=== PATIENT | male | born 1940 | race Caucasian/White ===

== ENCOUNTER 2021-07-26 07:14 | Day surgery (SDC) | payer OTHER, SELFPAY ==
[2021-07-26] VITALS (15 sets, daily range): BP systolic 102–162; BP diastolic 52–88; PULSE 84–113; RESP 10–17; TEMP 36.4–37.1; O2SAT 94–99; BMI 18.7
--- NOTE | 2021-07-26 | DI.RAD.S_ITS ---
PROCEDURE: XR CERVICAL SPINE 2V OR 3V INDICATIONS: ACDF C4-C7 TECHNIQUE: 2 view(s) of the cervical spine were acquired. COMPARISON: None. FINDINGS: Spot fluoroscopic intraoperative images demonstrating C4-C7 ACDF with interbody cage grafts. Expected intraoperative alignment. Hardware appears intact. Dictated by: Kelechi Swanson M.D. on 07/26/2021 at 12:57 Approved by: Kelechi Swanson M.D. on 07/26/2021 at 12:58
[2021-07-26 08:02] LABS: COVID19 -Nasal RAPID Negative (Negative)
[2021-07-26] MEDS: ACETAMINOPHEN 325 MG TABLET 975 MG PO (08:29)
--- NOTE | 2021-07-26 08:29 | PM.PREOP ---
Pre-operative Note COVID-19 COVID-19 status: Negative Result date/Date tested (Pos, Neg/Pending): 07/26/21 Interval Note History & Physical reviewed/Exam performed by Physician: Yes Changes to H&P: No
[2021-07-26] MEDS: LACTATED RINGERS 1,000 ML 42 ML IV ×2 (08:31→10:14)
[2021-07-26] MEDS: CEFAZOLIN 1 GM VIAL 2 GM IV (09:11)
--- NOTE | 2021-07-26 09:49 | SUR.OPER ---
Prone on spine table, head in foam head support, padded chest and pelvic supports, gel pad at knees, lower legs supported by pillows; nipples, genitalia and toes free of pressure, arms secured on foam padded arm boards at <90 degrees abduction. Tape over blanket at thigh secured to table.
[2021-07-26] MEDS: BUPIVACAINE 0.25% (PF) VIAL 30 ML INJ (09:57)
[2021-07-26] MEDS: EPINEPHrine 1 MG/ML 0.15 MG INJ (09:58)
--- NOTE | 2021-07-26 12:00 | PM.OP.1 ---
Operative Date/Time/Diagnoses Date of procedure: 07/26/21 Time of procedure: 08:45 Pre-op diagnosis: 1. C4-5, C5-6, C6-7 spondylosis with radiculopathy 2. 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 C4-5 C5-6 C6-7 anterior cervical diskectomy and fusion 2. C4-5 C5-6 C6-7 anterior interbody cage placement 3. C4-5 C5-6 C6-7 anterior instrumentation with plate and screw placement in C4-C5-C6 and C7 vertebrae 4. Utilization of microsurgical technique and operating loupes Same procedure as scheduled: Yes Indications: Patient has been having chronic neck pain and worsening cervical radiculopathy. Patient failed multiple conservative management with worsening pain weakness and numbness in her upper extremity. Patient has been having difficulty performing activity of daily living. After discussing risks benefits of treatment options, patient elected proceed with surgery. Surgeon: Grant Aguilar Autom[employer] Refinisher: Lala Rich Click Yes if Unassisted: No Anesthesia Type: General Operative Notes Closure Type: primary Specimen(s): none sent Prosthetic devices, grafts, tissues, transplants, or devices: Globus extend plate, PEEK cage Estimated Blood Loss (mL): 50 Procedure in detail: Patient was seen in the preoperative area. Risks and benefits of the surgery was discussed with the patient. Operative consent was obtained and placed in the chart. Patient was then taken to the operative room. Prophylactic antibiotic was given less than 0.5 hr prior to skin incision. General anesthesia was administered. Patient was placed into a supine position on her radiolucent table. Bilateral shoulders were taped down to allow proper C-arm imaging. Anterior cervical area was prepped and draped in a sterile fashion. Time-out was performed at this time. Using lateral C-arm imaging, the level between C4 and C7 was identified and marked on patient's neck. A oblique incision from midline towards medial border of sternocleidomastoid muscle was made. The platysma muscle was incised in line with skin incision. Metzenbaum scissor was used to develop the plane between the medial border of sternocleidomastoid d and the strap muscles medially. The carotid sheath and its contents were identified and protected behind the hand-held retractor during the entire case. The plane between the carotid sheath and strap muscles was developed with Metzenbaum scissors. Dissection was made down to the level of the anterior cervical fascia. Longus colli muscle was incised on the anterior aspect of vertebral bodies bilaterally from C4-C7. Spinal needle was placed into the C4-5 disc space and confirmed with lateral C-arm imaging. Using microsurgical technique and operative microscope, anterior cervical diskectomy was performed at C4-5 C5-6 and C6-7 level. This was done by removing the disc material, removing the anterior and posterior osteophytes posterior longitudinal ligaments along with performing bilateral foraminotomies at all 3 levels. Patient was found to have severe central and foraminal stenosis at all 3 levels. Patient's stenosis was fully decompressed after decompression was completed. Patient was found to have large anterior and posterior osteophytes at all 3 levels which was fully decompressed and removed during the process of the diskectomy and decompression. After the diskectomy was completed, 3 anterior interbody cages were obtained. The cages were packed with DBM bone grafting material. One cage each along with the bone grafting material was then packed into the interbody spaces from C4-C7 with one cage into each interbody level. After the cages were placed, the anterior cervical plate was stabilized to the C4-C7 vertebrae using 2 screws at each each level. Total 8 screws were placed. After confirming placement of the hardware with AP and lateral C-arm imaging, the screws were locked into the plate using the locking mechanism and torque limiting screwdriver. After the hardware was placed and confirmed with AP and lateral C-arm imaging, the wound was irrigated with sterile normal saline. The platysma muscle and the subcutaneous tissue was closed with 2-0 Vicryl. The skin was closed with 4-0 Monocryl and Steri-Strips. Patient tolerated the procedure well. Patient was transferred recovery room in stable condition. There were no complications. Complications: none Post-operative Condition: stable Disposition: PACU Plan for aftercare: Admit to inpatient hospital
[2021-07-26] MEDS: fentaNYL 100 MCG/2 ML INJ IV (12:35)
[2021-07-26] MEDS: hydrOXYzine pamoate 25 MG CAPSULE PO ×2 (12:50→22:05)
[2021-07-26] MEDS: OXYCODONE IR 5 MG TABLET PO ×3 (12:50→22:05)
[2021-07-26] MEDS: BENZOCAINE/MENTHOL 1 LOZ PKT 1 EACH PO (12:50)
[2021-07-26] MEDS: LACTATED RINGERS 1,000 ML 120 ML IV (12:51)
--- NOTE | 2021-07-26 13:18 | SUR.PHASEI ---
transferred to room 224 by LUIS Ricks and LUIS Reese. Belongings bag with pt.
[2021-07-26] MEDS: SODIUM CHLORIDE 0.9% 1,000 ML 100 ML IV (13:40)
--- NOTE | 2021-07-26 14:03 | SUR.OPER ---
Supine on padded OR bed, head on pillow, arms padded and tucked at sides, legs uncrossed, safety belt at thigh, tape over blanket over lower legs .
[2021-07-26] MEDS: HYDROMORPHONE 0.5 MG INJ IV (14:24)
--- NOTE | 2021-07-26 15:00 | PT.IIE ---
Current Diagnoses Other spondylosis with radiculopathy, cervical region (07/26/21) Spinal stenosis, cervical region (07/26/21) Surgery Performed Operation Date: 07/26/21 08:45 Actual Procedures p C4-5, C5-6, C6-7 ACDF w/anterior instrumentation(Not Applicable) - Grant Aguilar MD Medical History (Last Updated 03/09/21 @ 09:18 by Halley Figueroa RN) Ankle fracture, right (1982) Anxiety about health Arthritis Diabetes (~2003) Enlarged prostate Hearing impaired History of tremor Insomnia Meningitis Palpitations Panic attacks Skin irritation SOB (shortness of breath) Physical Therapy Inpatient Evaluation/Re-Eval M1 PT/OT-IP Prior Functional Status Start: 07/26/21 15:50 Freq: NEEDED Status: Active Protocol: Document 07/26/21 15:00 AB (Rec: 07/26/21 16:04 AB [id number]) Medical Review Prior Functional Status Medical History Reviewed Yes Communication able to answer questions but needs increase time to respond ; pt stated that he feels groggy Mobility and Gait stated that he is independent with all mobilities and ambulation without AD Social History Household Members spouse Living Arrangements House Number of Floors (Floors) Two Floors Number of Stairs To Enter/Railing? pt stays on main level of the house 3 steps B rails to enter from the side door 2 steps without rail from the front Home Environment Standard Height Toilet,Tub/ Shower Home Equipment Hand Held Shower Employment Status Retired Additional Social History Comment spouse stated that she can take pt to their shop's shower room which is a walk in shower with built in seat, no grab bars , with [facility] pt has an adjustable bed spouse works as a SW but will be working from home to assist pt M2 PT-IP Current Condition Start: 07/26/21 15:50 Freq: NEEDED Status: Active Protocol: Document 07/26/21 15:00 AB (Rec: 07/26/21 16:04 AB [id number]) Physical Therapy Current Condition Current Condition Evaluation Date 07/26/21 Treatment Diagnosis s/p C4-5, C5-6, C6-7 ACDF; difficulty in walking Onset Date 07/26/21 Precautions Cervical Spine Precautions Soft Collar for Comfort,No Heavy Lifting,Log Roll M3 PT-IP Subjective Start: 07/26/21 15:50 Freq: NEEDED Status: Active Protocol: Document 07/26/21 15:00 AB (Rec: 07/26/21 16:04 AB [id number]) Subjective Physical Therapy Visit Type Type Initial Evaluation Visit Start Time 15:00 Visit Stop Time 15:40 Total Visit Minutes 40 Number of STORAGE MANAGEMENT CONSULTANT Visits 0 Physical Therapy Visit Comments Patient Comments agreeable to do PT Therapy Pain Assessment Pain When Pain Assessed At Rest Pain Present Pain Present Pain Reported Location neck Intensity 5 Scale Used Numeric (0 - 10) Pain Management Techniques Apply Cold,Distraction, Modification of Treatment,Re- positioning,Timing of Activity with Medications M4 PT-IP Mobility and Gait Start: 07/26/21 15:50 Freq: NEEDED Status: Active Protocol: Document 07/26/21 15:00 AB (Rec: 07/26/21 16:04 [id number]) PT-Bed Mobility Assessment Rolling Type of Rolling Log Rolling Level of Assist Moderate Assistance Supine to Sit Supine to Sit Minimal Assistance Sit to Supine Sit to Supine Minimal Assistance PT-Transfer Assessment Sit to and From Stand Sit to and from Stand Minimal Assistance,1 Person Assistance,Use of Upper Extremities Equipment Transfer Assistive Device None,Bed Rail,Front Wheeled Walker Orthotic/Prosthetic Devices or Brace: No Comments Mobility Comments spouse in room. educated pt and spouse regarding cervical precautions and log roll bed mobility. pt stated that he feels groggy. pt completed log roll bed mobility min to mod A and max cues. able to sit on EOB SBA. no c/o dizziness/ lightheadedness but continues to c/o grogginess. educated spouse on soft collar management and was able to assist pt with donning/doffing of collar. BP sittin/ 87. pt completed sit to stand min A and ambulated in room without AD min to mod A ~ 15 ft. presents with shuffling gait, increase trunk flexion and decrease BLE elevation. pt agreed to use FWW. completed ambulation using FWW ~ 25 ft min A and cues. pt requested to go back to bed. completed sit to supine min A and cues. positioned pt in bed. call light and table placed within reach. Gait Assessment Gait Gait Assistance Required: Minimum Assistance,Moderate Assistance,1 Person Assist Distance (Feet) 25 Able to Maintain Weight Bearing Status Yes During Gait Assistive Devices Assistive Device None,Gait Belt,Front Wheeled Walker Orthotic/Prosthetic Devices or Brace: Yes Gait Deviations General Gait Pattern Decreased Stride Length, Decreased Feet Clearance, Flexed Trunk,Step-to Gait Factors Limiting Gait Function Factors Limiting Gait Function Decreased Activity Tolerance, Decreased Strength,Difficulty Following Directions,Limited Range of Motion,Pain,Poor Balance,Poor Safety Awareness PT-Balance Assessment Sitting Balance and Reactions Static Sitting Balance Ability Good Dynamic Sitting Balance Ability Good Standing Balance and Reactions Static Standing Balance Ability Fair Dynamic Standing Balance Ability Poor Device Used without AD M5 PT-IP Objective Assessments Start: 07/26/21 15:50 Freq: NEEDED Status: Active Protocol: Document 07/26/21 15:00 AB (Rec: 07/26/21 16:04 AB [id number]) Orientation Orientation/Cognition Level of Alertness Alert Orientation Name Language Function Ability Hard of Hearing Safety Awareness Decreased Safety Awareness Memory Description Short Term Impaired Gross Range of Motion Lower Extremity ROM Assessment Within Functional Limits Strength Lower Extremity Strength Assessment Within Functional Limits Sensation Assessment Sensation Gross Sensation WNL Muscle Tone Muscle Tone WNL Yes M6 PT-IP Treatment Start: 07/26/21 15:50 Freq: NEEDED Status: Active Protocol: Document 07/26/21 15:00 AB (Rec: 07/26/21 16:04 AB [id number]) Physical Therapy Treatment Education Education Provided Precautions,Weight Bearing Status,Post-Op Packet,Safety M7 PT-IP Assessment and Plan Start: 07/26/21 15:50 Freq: NEEDED Status: Active Protocol: Document 07/26/21 15:00 AB (Rec: 07/26/21 16:04 [id number]) PT Summary Assessment and Plan Potential Rehabilitation Potential Good Status of Condition at Evaluation Evolving Summary Impairments Pain,ROM,Strength,Balance, Coordination,Cognition,Bed Mobility,Transfers,Gait, Activity Tolerance Assessment Summary Pt s/p ACDF POD 0. still c/o feeling groggy but willing to do PT. spouse in room during PT session. pt requiring min A to mod A with ambulation without AD. recommending use of FWW at this time for safety but will re-assess tomorrow. pt's spouse will assist pt at home and caregiver training will be conducted when appropriate as well as stair climbing training. spouse stated that she get get a FWW for pt to use if needed. will continue to assess progress. Goals Bed Mobility Goal Independent Transfer Goal Independent,Front Wheeled Walker Gait Goal Independent,Front Wheel Walker Gait Distance 200 Other Goals ambulation without AD 200 ft SBA up/down 3 steps B rails SBA Days to Meet Goals 3 Frequency of Treatment Frequency Of Treatment Twice a Day Treatment Plan Physical Therapy Treatment Plan Bed Mobility Training,Transfer Training,Gait Training, Therapeutic Exercise,Balance Retraining,Post Op Education, Discharge Planning,Hot or Cold Pack,Neuromuscular Re-ed, Coordination Retraining,Manual Therapy Precautions Cervical Spine Precautions Soft Collar for Comfort,No Heavy Lifting,Log Roll Recommendations To Nursing Amount of Assist Needed 1 Person Assist Discharge Recommendations PT Discharge Recommendations Home with Assistance Equipment Needed for Home Before FWW Discharge Transportation Needs at Discharge Private Vehicle
[2021-07-26] MEDS: ACETAMINOPHEN 325 MG TABLET 650 MG PO (15:07)
--- NOTE | 2021-07-26 15:31 | PC.NURSE ---
Pt arrived from PACU at approximately 1320 A &O x3, pleasant. Pain reported 5/10 to neck medicated with PRN pain medications. IVF NS @ 100 ml /hr. Lara in place draining copious Light yellow clear urine output. Pt denies n/v, denies appetite, VSS, afebrile on RA, able to participate with PT this afternoon. Soft collar in place with dressing C/D/I/.
[2021-07-26] MEDS: CEFAZOLIN 1 GM VIAL IV (17:18)
[2021-07-26] MEDS: ATORVASTATIN 20 MG TABLET PO (17:18)
[2021-07-26] MEDS: SENNOSIDES 8.6 MG TABLET 17.2 MG PO (20:15)
[2021-07-26] MEDS: METFORMIN HCL 500 MG TABLET 1000 MG PO (20:15)
[2021-07-26] MEDS: SERTRALINE 50 MG TABLET 25 MG PO (20:15)
[2021-07-26] MEDS: DOCUSATE 100 MG CAPSULE PO (20:15)
[2021-07-27] MEDS: SODIUM CHLORIDE 0.9% 1,000 ML 100 ML IV (00:56)
[2021-07-27 01:00] VITALS: BP 127/68; PULSE 86; RESP 16; TEMP 36.3; O2SAT 97
[2021-07-27] MEDS: CEFAZOLIN 1 GM VIAL IV (01:52)
[2021-07-27] MEDS: OXYCODONE IR 5 MG TABLET PO ×3 (02:06→11:39)
[2021-07-27 04:09] VITALS: BP 121/63; PULSE 87; RESP 16; TEMP 36.6; O2SAT 95
[2021-07-27 08:00] VITALS: BP 132/68; PULSE 88; RESP 17; TEMP 37.4; O2SAT 95
--- NOTE | 2021-07-27 09:12 | P.DS_ITS ---
History of Present Illness History of Present Illness Date Patient Seen: 07/27/21 Time Patient Seen: 09:12 Chief complaint: OPB Narrative: Refer to previous HPI. 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 C4-5 C5-6 C6-7 anterior interbody cage placement 3.? C4-5 C5-6 C6-7 anterior instrumentation with plate and screw placement in C4-C5-C6 and C7 vertebrae 4.? Utilization of microsurgical technique and operating loupes Hospital Course: Patient was admitted to the hospital following the above-listed procedure for the above-listed diagnosis. Following the procedure the patient has been convalescing appropriately in his pain has been managed with his current pain management regimen. Throughout his time in the hospital the patient has denied fever, chills, nausea, chest pain, shortness of breath, or urinary retention. Dressing over the incision site has remained clean, dry, and intact following surgery. Patient has successfully worked with physical therapy prior to discharge. Status at Discharge Cognitive/behavioral status at discharge: oriented Functional status at discharge: independent ambulation Overall status at discharge: patient is progressing back to baseline Exam Vital Signs (past 8 hours): - 07/27/21 04:09 07/27/21 08:00 Temperature 97.9 F 99.4 F Pulse Rate 87 88 Respiratory Rate 16 17 Blood Pressure 121/63 132/68 Pulse Oximetry 95 95 Oxygen Delivery Method Room Air Oxygen Flow Rate 0 Narrative Exam Narrative: Pleasant 80-year-old male postop day 1 status post C4-5, C5-6, C6-7 ACDF. Patient is resting comfortably in bed, is in no acute distress, and is alert and oriented x3. Skin is warm and dry, and the skin surrounding the incision site is free of erythema, warmth, induration, or discharge. Good sensation appreciated throughout the bilateral upper extremities to light touch. Gross motor function intact throughout the bilateral upper extremities. Radial pulses palpated bilaterally are even. Calves are soft and nontender, negative Homans sign. No other signs of DVT appreciated. Const General: cooperative, healthy appearing and comfortable Resp Effort & Inspection: normal respiratory effort and able to speak in complete sentences Skin General: no rashes or lesions noted [facility] Medical History Ankle fracture, right (1982) Anxiety about health Arthritis Diabetes (~2003) Enlarged prostate Hearing impaired History of tremor Insomnia Meningitis Palpitations Panic attacks Skin irritation SOB (shortness of breath) Surgical History History of vasectomy Hx of abdominal surgery (06/2016) Social History household members: spouse Smoking Status: Former smoker alcohol intake: current Discharge Assessment & Plan Assessment and Plan Assessment: Patient is doing well and is stable. Plan of Treatment: Current pain management regimen is to be continued as it is adequately controlled the patient's pain level. First postoperative visit in clinic is scheduled for 2 weeks following discharge. Patient is able to shower with the dressing over the incision site covered. Dressing can be changed as needed if it becomes damaged or soiled. Avoid bending, twisting, lifting. Patient is to contact clinic with any concerns or questions. Any signs of increased redness, swelling, warmth, pain, or discharge from around the incision site should be reported to the clinic. Discharge Plan Discharge Plan Patient Disposition: Home Provider Discharge Comment: Patient is cleared for discharge pending PT clearance and once he is able to void following the removal of his catheter. Discharge orders & Medications Discharge Orders: Discharge (Order); Ordered 07/27/21 Ordered By: Jaya Beck Prescriptions: New acetaminophen 325 mg Tablet 650 mg PO Q6HR PRN (Reason: Pain, Mild (1-3)) Qty: 90 RF: 0 oxycodone 5 mg Tablet 5 mg PO Q3HR PRN (Reason: Pain, Moderate (4-6)) Qty: 60 RF: 0 hydroxyzine pamoate 25 mg Capsule 25 mg PO Q4HR PRN (Reason: Nausea And Vomiting) Qty: 40 RF: 0 Continued aspirin 81 mg Capsule,Delayed Release(Dr/Ec) 81 mg PO DAILY RF: 0 hydroxyzine HCl 10 mg Tablet 10 mg PO BID RF: 0 metformin 1,000 mg Tablet 1,000 mg PO BID RF: 0 glipizide 5 mg PO DAILY RF: 0 sertraline 25 mg PO BID RF: 0 atorvastatin 20 mg Tablet 20 mg PO QPM RF: 0 Diet/Activity/Treatments Diet: Diet as Tolerated and Regular Activity: Avoid bending, twisting, lifting. Skin/Wound/Dressing Care Report to your healthcare provider any signs of infection, such as:: chills, fever, night sweats, unusual drainage and unusual redness Dressing: Dressing over the incision site can be changed as needed if it becomes damaged or soiled. Other wound treatment: Avoid placing topical ointments over the incision site for soaking the incision site. Visit Report/Discharge Packet Instructions: DI for Anterior Cervical Discectomy and Fusion Stand Alone Forms: Surgery Discharge Discharge Data Attending Provider: Grant Aguilar Home Medications and Allergies Home Medications Medication Instructions Recorded Confirmed Type aspirin 81 mg capsule,delayed 81 mg PO DAILY 03/09/21 07/26/21 History release hydroxyzine HCl 10 mg tablet 10 mg PO BID 03/09/21 07/26/21 History atorvastatin 20 mg tablet 20 mg PO QPM 07/26/21 07/26/21 History glipizide 5 mg PO DAILY 07/26/21 07/26/21 History metformin 1,000 mg tablet 1,000 mg PO BID 07/26/21 07/26/21 History sertraline 25 mg PO BID 07/26/21 07/26/21 History acetaminophen 325 mg tablet 650 mg PO Q6HR PRN #90 tab 07/27/21 Rx hydroxyzine pamoate 25 mg capsule 25 mg PO Q4HR PRN #40 cap 07/27/21 Rx oxycodone 5 mg tablet 5 mg PO Q3HR PRN #60 tab 07/27/21 Rx Allergies Allergy/AdvReac Type Severity Reaction Status Date / Time No Known Drug Allergies Allergy Verified 07/26/21 08:05
[2021-07-27] MEDS: ACETAMINOPHEN 325 MG TABLET 650 MG PO (09:18)
[2021-07-27] MEDS: DOCUSATE 100 MG CAPSULE PO (09:19)
[2021-07-27] MEDS: SERTRALINE 50 MG TABLET 25 MG PO (09:20)
[2021-07-27] MEDS: METFORMIN HCL 500 MG TABLET 1000 MG PO (09:20)
[2021-07-27] MEDS: glipiZIDE 5 MG TABLET PO (09:20)
[2021-07-27] MEDS: hydrOXYzine pamoate 25 MG CAPSULE PO (09:21)
--- NOTE | 2021-07-27 10:16 | PT.IPTN ---
Current Diagnoses Other spondylosis with radiculopathy, cervical region (07/26/21) Spinal stenosis, cervical region (07/26/21) Surgery Performed Operation Date: 07/26/21 08:45 Actual Procedures p C4-5, C5-6, C6-7 ACDF w/anterior instrumentation(Not Applicable) - Grant Aguilar MD Physical Therapy Treatment Note M2 PT-IP Current Condition Start: 07/26/21 15:50 Freq: NEEDED Status: Active Protocol: Document 07/26/21 15:00 AB (Rec: 07/26/21 16:04 AB [id number]) Physical Therapy Current Condition Current Condition Evaluation Date 07/26/21 Treatment Diagnosis s/p C4-5, C5-6, C6-7 ACDF; difficulty in walking Onset Date 07/26/21 Precautions Cervical Spine Precautions Soft Collar for Comfort,No Heavy Lifting,Log Roll M3 PT-IP Subjective Start: 07/26/21 15:50 Freq: NEEDED Status: Active Protocol: Document 07/27/21 09:45 SP (Rec: 07/27/21 11:26 SP [id number]) Subjective Physical Therapy Visit Type Type Treatment Note Visit Start Time 09:45 Visit Stop Time 10:16 Total Visit Minutes 31 Notes in room, completed caregiver training including donning gait belt for safety during mobility and physical assist required throughout tx. Vital taken during tx: elevated supine: BP 141/70 HR 98 SaO2 95% on RA. seated at EOB: BP 149/74 HR 105 standing: forgot to write down , no significant change from seated. Post mobility: BP 123/56 HR 108 Number of GLOVE BRUSHER Visits 1 Physical Therapy Visit Comments Patient Comments Pt agreeable to working with therapy. Patient Goals return home with to assist him Therapy Pain Assessment Pain When Pain Assessed During Mobility Pain Present Pain Present Pain Reported Location neck Intensity 4 Scale Used Numeric (0 - 10) Description With Movement Pain Behaviors Facial Grimacing Pain Management Techniques Distraction,Re-positioning, Timing of Activity with Medications M4 PT-IP Mobility and Gait Start: 07/26/21 15:50 Freq: NEEDED Status: Active Protocol: Document 07/27/21 09:45 SP (Rec: 07/27/21 11:26 SP [id number]) PT-Bed Mobility Assessment Rolling Type of Rolling Log Rolling Level of Assist Contact Guard Assistance Supine to Sit Supine to Sit Contact Guard Assistance,Head of Bed Elevated Scooting Scooting to Edge of Bed Standby Assistance PT-Transfer Assessment Sit to and From Stand Sit to and from Stand Contact Guard Assistance, Minimal Assistance,1 Person Assistance,Use of Upper Extremities Equipment Transfer Assistive Device None,Gait Belt,Front Wheeled Walker Orthotic/Prosthetic Devices or Brace: Yes Transfers Transfer Destination Chair Transfer Technique pt ambulated using CGA- Gerson no AD, SBA FWW Transfer Ability Level of Assist Contact Guard Assistance, Minimal Assistance,1 Person Assistance,Use of Upper Extremities Comments Mobility Comments Pt reported little light headed upon position changes and walking around improved but didn't go away completely. Elevated supine 5 deg LR L with cuing for maintain spinal alignment, noted pt uses UEs to maintain head forward, L sidyling >sit CGA using BUE WB on bed to right trunk, sBA scoot to EOB. GLOVE BRUSHER educated at pt on safety use of donned gait belt in sitting pre mobility, completed. Sit> Stand CGA- Min A, stationary standing sway of trunk noted but self recovery, cues for to maintain contact safety balance no AD to assess vitals pre gait, no significant change in BP from sup and seated. Pt agreeable to progress gait around room, CGA> Min A without AD, cued upright posture, slower pacing and increase stride and foot clearance for safety, improved stability with Min cuing. Progressed gait into hallway with cues for to provide full grasp on gait belt and give pt reminders for posture, slower pacing and longer stride. GLOVE BRUSHER followed with FWW and w/c for need as arrises. GLOVE BRUSHER provided FWW CGA> SBA given by and GLOVE BRUSHER, improved stability, foot clearance. GLOVE BRUSHER suggested use at home and / pt stated can acquire one from friend or family and in agreement use at this time. Pt walked down to stairs, completed 3 stairs using BHR CGA by , stable step over step patterning. Pt walked back to room, upon closer to room, GLOVE BRUSHER provided SPC for assessment LRAD in RUE , max cues for sequencing 2pt gait with LLE, difficulty maintaining proper use and pt stated felt more safe using FWW and will get one for home. Pt returned to chair when arrived in room, good backing up fully using fWW and reach slow descent into chair SBA provided by . Pt had call light and all needs in reach before left. Pt is ok to return home with to assist him when medically cleared. Gait Assessment Gait Gait Assistance Required: Standby Assistance,Contact Guard Assist,Minimum Assistance,1 Person Assist Distance (Feet) 500 Able to Maintain Weight Bearing Status Yes During Gait Assistive Devices Assistive Device None,Gait Belt,Front Wheeled Walker Orthotic/Prosthetic Devices or Brace: Yes Gait Deviations General Gait Pattern Antalgic,Decreased Stride Length,Decreased Feet Clearance,Flexed Trunk,Narrow Based Gait Factors Limiting Gait Function Factors Limiting Gait Function Decreased Activity Tolerance, Decreased Strength,Limited Range of Motion,Pain,Poor Balance,Poor Safety Awareness Comments Gait Comments See mobility comments for details Stair Climbing Assessment Evaluation Level of Assist On Stairs Contact Guard Assistance Devices Stair Climbing Assistive Devices Left Railing,Right Railing Technique/Endurance Stair Climbing Direction Ascend and Descend Stair Climbing Technique Step Over Step Number of Steps Climbed 3 Stair Climbing Set # Repetitions (reps) 1 Comments Stair Climbing Comments see mobility comments for details PT-Balance Assessment Sitting Balance and Reactions Static Sitting Balance Ability Normal Dynamic Sitting Balance Ability Good Standing Balance and Reactions Static Standing Balance Ability Fair Dynamic Standing Balance Ability Poor Device Used without AD, good with FWW M5 PT-IP Objective Assessments Start: 07/26/21 15:50 Freq: NEEDED Status: Active Protocol: Document 07/26/21 15:00 AB (Rec: 07/26/21 16:04 AB [id number]) Orientation Orientation/Cognition Level of Alertness Alert Orientation Name Language Function Ability Hard of Hearing Safety Awareness Decreased Safety Awareness Memory Description Short Term Impaired Gross Range of Motion Lower Extremity ROM Assessment Within Functional Limits Strength Lower Extremity Strength Assessment Within Functional Limits Sensation Assessment Sensation Gross Sensation WNL Muscle Tone Muscle Tone WNL Yes M6 PT-IP Treatment Start: 07/26/21 15:50 Freq: NEEDED Status: Active Protocol: Document 07/27/21 09:45 SP (Rec: 07/27/21 11:26 SP [id number]) Physical Therapy Treatment Education Education Provided Precautions,Weight Bearing Status,Post-Op Packet,Safety M7 PT-IP Assessment and Plan Start: 07/26/21 15:50 Freq: NEEDED Status: Active Protocol: Document 07/27/21 09:45 SP (Rec: 07/27/21 11:26 SP [id number]) PT Summary Assessment and Plan Potential Rehabilitation Potential Good Status of Condition at Evaluation Evolving Summary Impairments Pain,ROM,Strength,Balance, Coordination,Cognition,Bed Mobility,Transfers,Gait, Activity Tolerance Progress Towards Goals Progressing Toward Goals,Slow Progress due to Activity Tolerance Assessment Summary Pt progressed in mobility CGA bed mobility, CGA- Min A sit> stand, cGA standing without AD . CG- min A during gait without AD unsteady requiring increased assist with balance, SBA using FWW. GLOVE BRUSHER recommended use of FWW at this time for safety with balance during mobility with pt and verbalized in agreement and can acquire one from familiy or friend. Completed gait further distance 500ft total, complete stair mgt CGA B HR. Pt is ok to return home with assist when medically stable. Pt was welcoming to GLOVE BRUSHER's recommendation of HHPT for improvement in balance, functional strength during mobility with LRAD. Goals Bed Mobility Goal Independent Transfer Goal Independent,Front Wheeled Walker Gait Goal Independent,Front Wheel Walker Gait Distance 200 Other Goals ambulation without AD 200 ft SBA up/down 3 steps B rails SBA Days to Meet Goals 3 Frequency of Treatment Frequency Of Treatment Twice a Day Treatment Plan Physical Therapy Treatment Plan Bed Mobility Training,Transfer Training,Gait Training, Therapeutic Exercise,Balance Retraining,Post Op Education, Discharge Planning,Hot or Cold Pack,Neuromuscular Re-ed, Coordination Retraining,Manual Therapy Other Recommendations and Next Treatment gait LRAD, balance activities Focus Precautions Cervical Spine Precautions Soft Collar for Comfort,No Heavy Lifting,Log Roll Recommendations To Nursing Amount of Assist Needed Standby Assistance,1 Person Assist Discharge Recommendations PT Discharge Recommendations Home with Assistance,Home Health Equipment Needed for Home Before FWW- will borrow from family/ Discharge friend Transportation Needs at Discharge Private Vehicle
--- NOTE | 2021-07-27 11:16 | OT.IP.EVAL ---
Current Diagnoses Other spondylosis with radiculopathy, cervical region (07/26/21) Spinal stenosis, cervical region (07/26/21) Surgery Performed Operation Date: 07/26/21 08:45 Actual Procedures p C4-5, C5-6, C6-7 ACDF w/anterior instrumentation(Not Applicable) - Grant Aguilar MD Past Medical History (Last Reviewed 07/27/21 @ 09:17 by Jaya Beck PA-C) Ankle fracture, right (1982) Anxiety about health Arthritis Diabetes (~2003) Enlarged prostate Hearing impaired History of tremor History of vasectomy Hx of abdominal surgery (06/2016) Insomnia Meningitis Palpitations Panic attacks Skin irritation SOB (shortness of breath) Surgical History (Last Reviewed 07/27/21 @ 09:17 by Jaya Beck PA-C) History of vasectomy Hx of abdominal surgery (06/2016) Occupational Therapy Inpatient Evaluation/Re-Eval M1 PT/OT-IP Prior Functional Status Start: 07/26/21 15:50 Freq: NEEDED Status: Active Protocol: Document 07/27/21 11:20 [facility] (Rec: 07/27/21 11:32 [facility] [id number]) Medical Review Prior Functional Status Medical History Reviewed Yes Communication able to answer questions but needs increase time to respond ; pt stated that he feels groggy Mobility and Gait stated that he is independent with all mobilities and ambulation without AD Activities of Daily Living and IADL's Pt states able to do needs of ADl's. Social History Household Members spouse Living Arrangements House Number of Floors (Floors) Two Floors Number of Stairs To Enter/Railing? pt stays on main level of the house 3 steps B rails to enter from the side door 2 steps without rail from the front Home Environment Standard Height Toilet,Tub/ Shower Home Equipment Hand Held Shower Employment Status Retired Additional Social History Comment spouse stated that she can take pt to their shop's shower room which is a walk in shower with built in seat, no grab bars , with [facility] pt has an adjustable bed spouse works as a SW but will be working from home to assist pt M2 OT-IP Current Condition Start: 07/27/21 11:19 Freq: Status: Active Protocol: Document 07/27/21 11:20 [facility] (Rec: 07/27/21 11:32 [facility] [id number]) Occupational Therapy Current Condition Current Condition Evaluation Date 07/27/21 Treatment Diagnosis S/p C4-5, C5-6, C6-7 ACDF Diagnosis Onset Date 07/26/21 Post Operative Precautions Cervical Spine Precautions Soft Collar for Comfort,No Heavy Lifting,Log Roll M3 OT- IP Subjective and Pain Start: 07/27/21 11:19 Freq: Status: Active Protocol: Document 07/27/21 11:20 [facility] (Rec: 07/27/21 11:32 [facility] [id number]) OT- Subjective Occupational Therapy Visit Type Type Initial Evaluation Visit Start Time 10:47 Visit Stop Time 11:16 Total Visit Minutes 29 Occupational Therapy Visit Comments Patient Comments Pt agreed to work with OT. Pt 's present for caregiver training. Patient/Caregiver Goals To go home. OT Pain Assessment Pain When Pain Assessed At Rest Pain Present Pain Present Denied Pain M4 OT- IP ADL's Start: 07/27/21 11:19 Freq: Status: Active Protocol: Document 07/27/21 11:20 [facility] (Rec: 07/27/21 11:32 [facility] [id number]) OT [id number] Comments OT Self-Feeding Comments Pt states did have some trouble while eating, gave and went over information of dealing with changes in voice and swallowing after ACDF surgery. Pt's able to state good understanding. OT ADL-Grooming Comments OT Grooming Comments Pt states did prior. OT ADL-Oral Care Comments Oral Care Comments Pt states did prior. OT ADL-Dressing General Eval Upper Body Dressing Ability Standby Assistance Lower Body Dressing Ability Moderate Assistance Areas Needing Assistance Underpants/Brief,Pants/Shorts, Socks Comments OT Dressing Comments Pt able to adequately bring his legs up to matt brief and pants over his feet. Pt needing assist for socks and making sure pt not stepping on his pants. Educated best at this time to sit and do LB dressing needs for safety. OT ADL-Toileting General Evaluation Toileting Ability Standby Assistance Comments OT Toileting Comments Pt able to use FWW to stand over the toilet to urinate. OT ADL-Bathing Comments OT Bathing Comments Pt wanting to shower at home. M5 OT- IP IADL's Start: 07/27/21 11:19 Freq: Status: Active Protocol: Document 07/27/21 11:20 [facility] (Rec: 07/27/21 11:32 [facility] [id number]) OT-Instrumental Activities of Daily Living Home Safety Awareness Awareness of Need for Assistance at Home Good Awareness Home Safety Comments Pt a bit impulsive and decreased safety awareness, best for his to provide assist as needed. Medication Management Medication Management Comments Pt a bit impulsive and decreased safety awareness, best for his to provide assist as needed. Money Management Money Management Comments Pt a bit impulsive and decreased safety awareness, best for his to provide assist as needed. Meal Preparation Meal Preparation Comments Pt a bit impulsive and decreased safety awareness, best for his to provide assist as needed. Line Tender Flakeboard Line Tender Flakeboard Comments Pt a bit impulsive and decreased safety awareness, best for his to provide assist as needed. M6 OT- IP Functional Cognition Start: 07/27/21 11:19 Freq: Status: Active Protocol: Document 07/27/21 11:20 [facility] (Rec: 07/27/21 11:32 [facility] [id number]) Cognitive Factors Limiting Selfcare Function Cognitive Ability Level of Alertness Alert Patient Orientation Name,Place,Situation Attention Span Ability Capable of Focused Attention, Capable of Sustained Attention Ability to Follow Commands Able to Follow One Step Commands Safety Awareness Underestimates Need for Assistance Cognitive Comments Cognitive Assessment Comments Pt needing cues for safety awareness, a bit impulsive, cues to use FWW for balance at this time, and to be sure to have his supervise or assist him as needed. OT- Vision and Hearing OT- Hearing Assessment OT- Hearing Assessment WFL OT- Vision Assessment Visual Acuity Glasses For Reading M7 OT- IP Mobility and Balance Start: 07/27/21 11:19 Freq: Status: Active Protocol: Document 07/27/21 11:20 [facility] (Rec: 07/27/21 11:32 [facility] [id number]) OT-Transfer Assessment Sit to and From Stand Sit to and from Stand Standby Assistance Transfers Transfer Ability Standby Assistance,Contact Guard Assistance Technique Transfer Destination Bed Transfer Technique Stand Step Pivot Devices Transfer Assistive Devices None,Gait Belt,Front Wheeled Walker Comments Mobility Comments Re-educated pt's how to matt/doff the gait belt. SBA with FWW and CGA when pt trying to walk out of the bathroom without the FWW. OT- Balance Assessment Sitting Balance and Reactions Static Sitting Balance Ability Normal Dynamic Sitting Balance Ability Good Standing Balance and Reactions Static Standing Balance Ability Good M8 OT- IP Objective Assessments Start: 07/27/21 11:19 Freq: Status: Active Protocol: Document 07/27/21 11:20 [facility] (Rec: 07/27/21 11:32 [facility] [id number]) OT- Coordination Assessment Comments Coordination Comments Pt has tremors in the right hand. OT-Muscle Tone Assessment Muscle Tone WNL Yes M9 OT- IP Assessment and Plan Start: 07/27/21 11:19 Freq: Status: Active Protocol: Document 07/27/21 11:20 [facility] (Rec: 07/27/21 11:32 [facility] [id number]) OT Summary Assessment and Plan Potential Rehabilitation Potential Good Analytic Complexity at Evaluation Low Summary OT Impairments Balance,Functional Cognition, Dressing,Toileting,Bathing, Toilet Transfers,Shower Transfers Progress Towards Goals Progressing Toward Goals Goals Grooming Goal Independent Dressing Goal Independent Toileting Goal Independent Bathing Goal Standby Assistance Toilet Transfer Goal Independent Shower Transfer Goal Independent Patient/Caregiver Education Goal Demonstrate Post-Op Precautions,Caregiver Independent Assisting Patient Days to Meet Goals 2 Frequency of Treatment Frequency Of Treatment Once a Day Treatment Plan OT Treatment Plan ADL Training,Functional Cognition Training,Functional Mobility,Patient/Family Education,Discharge Planning Other Treatment Recommendations and Next Shower if pt still here. Treatment Focus Discharge Recommendations OT Discharge Recommendations Home with 24/ Assist Available Home Equipment Needs FWW, pt issued long handled shoe horn Transportation Needs at Discharge Private Vehicle
[2021-07-27 12:01] VITALS: BP 122/59; PULSE 93; RESP 17; TEMP 37; O2SAT 97
--- NOTE | 2021-07-27 12:09 | CM.DANOTE ---
DCP: Case received, EMR reviewed and met with patient. Spouse, Kacie, was also at bedside. Introduced self and role. Was able to obtain information regarding patient's baseline activity status prior to surgery. DCP assessment completed with information currently available. Patient is a 80 year old male who admitted yesterday morning to the care of the orthopedic team. PCP: Dr. Avelar Payer: confirmed: [facility]. Patient came to the hospital via private vehicle for a surgical procedure. Patient had C4-5, C5-6, C6-7 ACDF. Patient has history of spinal stenosis, cervical region. Met with patient in his room. He was sitting up in bed with neck brace applied. was present in the room as well. Patient resides with spouse in [place], and confirmed that his provider is in [place] as well. He is independent at his baseline. He has not used any DME prior to surgery, but with P.T's suggestion, has a walker that he will be able to use for balance. He was walking in the [place] with P.T. will be able to assist patient when he goes home. P: Patient is to be discharged home today. Nelia Quiles RN/[employer]
--- NOTE | 2021-07-27 13:47 | PC.NURSE ---
Pt received A&OX3, alert and pleasant reports pain tolerable / this a.m. Good po intake. Working with PT/OT. PA at bedside clearing patient for discharge home this a.m.. Pt clearing patient with FWW, supportive. VSS, afebrile on RA. He has arevalo dc'd at 0930 this a.m. and able to void prior to lunch. Pt acknowledged understanding of site care, follow upcare, activity restrictions, medications, and worsening of symptoms. MERCHANDISE DISTRIBUTOR escorted patient via with all of his belongings with to private vehicle for discharge home after lunch today.
== END 2021-07-27 13:15 | disposition home or self-care (01) ==
LOC: OR 07:20 → AC 07:22
PROVIDERS: Referring Provider Orthopaedic Surgery Orthopaedic Surgery of the Spine; Visit Provider Orthopaedic Surgery Orthopaedic Surgery of the Spine
PROC: (CPT 22551; principal; 2021-07-26 08:45)
DX: M48.02 Spinal stenosis, cervical region (principal); M47.22 Other spondylosis with radiculopathy, cervical region; E11.9 Type 2 diabetes mellitus without complications; N40.0 Benign prostatic hyperplasia without lower urinary tract symptoms; F41.9 Anxiety disorder, unspecified; Z79.84 Long term (current) use of oral hypoglycemic drugs; Z87.891 Personal history of nicotine dependence; Z20.822 Contact with and (suspected) exposure to COVID-19
CPT/HCPCS: 22551; 22552 ×2; 22853 ×3; 22846; 20930; 72040; 76000; 82962; 87635; 97116; 97162; 97165; 97530; 97535; C1776; C9803; J0171; J0330; J0461; J0690; J1100; J1170; J2250; J2405; J2704; J3010